=== PATIENT | male | born 1980 | race Caucasian/White ===

== ENCOUNTER 2021-10-21 10:19 | Emergency (ER) | payer OTHER | END 2021-10-21 13:15 | disposition home or self-care (01) | LOC: JD.ED 10:19 | DX: S86.012A Strain of left Achilles tendon, initial encounter (principal); W18.39XA Other fall on same level, initial encounter; Y93.64 Activity, baseball; Y93.02 Activity, running | CPT/HCPCS: 73721-26-LT; 73721-LT; 99283-25 ==

== ENCOUNTER 2021-10-27 07:39 | Day surgery (SDC) | payer OTHER ==
[~2021-10-27 07:39] MED LIST: Lactated Ringers 1,000 ML IV SCH; Lidocaine 1%/Sod Bicarbonate in NS 8.4% 1 ML Syringe IDERM PRN; Sodium Chloride 0.9% 10 ML Syringe FLUSH PRN; Sodium Chloride 0.9% 10 ML Syringe FLUSH SCH
[2021-10-27] MEDS ORDERED: Ondansetron 4 MG/2 ML SDV ONE (07:40)
[2021-10-27] MEDS ORDERED: Lidocaine 1% 4 ML ONE (07:40)
[2021-10-27] MEDS ORDERED: Rocuronium 50 MG/5 ML Vial ONE (07:40)
[2021-10-27] MEDS ORDERED: Propofol 200 MG/20 ML SDV ONE ×2 (07:41→09:09)
[2021-10-27] MEDS ORDERED: fentaNYL 250 MCG/5 ML SDV ONE (07:41)
[2021-10-27] MEDS ORDERED: Midazolam 1 MG/ML 2 ML SDV ONE (07:41)
[2021-10-27] MEDS ORDERED: ceFAZolin 1 GM Vial ONE (07:51)
[2021-10-27] MEDS ORDERED: Bupivacaine 0.25% 10 ML SDV ONE (07:52)
[2021-10-27] MEDS ORDERED: Lactated Ringers 1,000 ML ONE (09:08)
[2021-10-27] MEDS ORDERED: Ketorolac 30 MG/ML SDV ONE (09:28)
[2021-10-27] MEDS ORDERED: HYDROmorphone 0.5 MG/0.5 ML Syringe ONE (09:28)
[2021-10-27] MEDS ORDERED: Dexamethasone 4 MG/ML 5 ML MDV ONE (09:31)
[2021-10-27] MEDS ORDERED: Dexmedetomidine 200 MCG/2 ML SDV ONE (09:36)
[2021-10-27] MEDS ORDERED: Ondansetron 4 MG/2 ML SDV IVPUSH PRN (09:41)
[2021-10-27] MEDS ORDERED: fentaNYL 100 MCG/2 ML SDV IVPUSH PRN (09:41)
[2021-10-27] MEDS ORDERED: HYDROmorphone 0.5 MG/0.5 ML Syringe IVPUSH PRN (09:41)
[2021-10-27] MEDS ORDERED: Ketorolac 15 MG/ML SDV ONE (09:45)
[2021-10-27] MEDS ORDERED: Ketamine 500 mg/10 ML MDV ONE (09:45)
[2021-10-27] MEDS ORDERED: Neostigmine Methylsulfate 10 MG/10 ML MDV ONE (09:48)
[2021-10-27] MEDS ORDERED: Acetaminophen/HYDROcodone 325-5 MG Tab PO PRN (11:03)
== END 2021-10-27 13:40 | disposition home or self-care (01) ==
LOC: JD.SDS 07:39
PROVIDERS: ATTEND Orthopaedic Surgery
DX: S86.012A Strain of left Achilles tendon, initial encounter (principal); S93.492A Sprain of other ligament of left ankle, initial encounter; E66.9 Obesity, unspecified; Z68.33 Body mass index [BMI] 33.0-33.9, adult; Z87.891 Personal history of nicotine dependence; W19.XXXA Unspecified fall, initial encounter
CPT/HCPCS: 27650; A9270; J0690; J1100; J1170; J1885; J2250; J2405; J2704; J2710; J3010; J3490; J7120; 01472

== ENCOUNTER 2022-04-15 08:28 | Emergency (ER) | payer OTHER ==
[2022-04-15] MEDS ORDERED: HYDROmorphone 1 MG/ML Syringe IM ONE (10:19)
[2022-04-15] MEDS ORDERED: Promethazine 25 MG/ML SDV IM ONE (10:19)
== END 2022-04-15 10:56 | disposition home or self-care (01) ==
LOC: JD.ED 08:28
DX: M54.50 Low back pain, unspecified (principal); E66.9 Obesity, unspecified; Z68.33 Body mass index [BMI] 33.0-33.9, adult; Z79.82 Long term (current) use of aspirin
CPT/HCPCS: 72131; 96372; 99283; J1170; J2550